=== PATIENT | female | born 1985 | race American Indian/Alaskan Native ===

== ENCOUNTER 2017-03-31 01:46 | Inpatient (IN) | payer MEDICAID ==
[2017-03-31] MEDS ORDERED: LACTATED RINGERS 1,000 ML IV ONE (02:20)
[2017-03-31] MEDS ORDERED: BRETHINE SUB-Q ONE (03:34)
[2017-03-31] MEDS ORDERED: LACTATED RINGERS 1,000 ML IV SCH (04:00)
[2017-03-31 04:18] LABS: Basophils % (Auto) 0.2 % (0.0-1.8); Eosinophils % (Auto) 0.9 % (0.0-4.3); Hematocrit 33.6 % (30.3-42.9); Hemoglobin 11.4 gm/dl (10.1-14.3); Mean Corpuscular HGB Conc 34 % (30-34); Mean Corpuscular Hemoglobin 27 pg (28-32); Mean Corpuscular Volume 80 fl (79-97); Platelet Count 187 K/mm3 (140-440); Red Blood Count 4.19 M/mm3 (3.65-5.03); Red Cell Distribution Width 17.4 % (13.2-15.2)
[2017-03-31] MEDS ORDERED: ANCEF/STERILE WATER 2 GM/20 ML 2 GM/20 ML SYRINGE IV NR (05:00)
[2017-03-31 05:03] LABS: HIV-1 Antigen p24 Non React (Non React); HIVR-1/2 Ab Non React (Non React)
[2017-03-31] MEDS ORDERED: BRETHINE IVP PRN (05:07)
[2017-03-31] MEDS ORDERED: BICITRA PO ONE ×2 (05:14→06:30)
[2017-03-31] MEDS ORDERED: ceFAZolin 1 GM in NACL 0.9% 20 ML IV SCH (05:15)
[2017-03-31] MEDS ORDERED: BICITRA ONE (05:17)
[2017-03-31] MEDS ORDERED: PITOCin/NS 20 UNIT/1000ML DRIP 20,000 MILLIUNITS/1,000 ML BAG IV ONE (05:17)
[2017-03-31] MEDS ORDERED: PEPCID IV ONE (05:17)
[2017-03-31] MEDS ORDERED: REGLAN ONE (05:17)
[2017-03-31] MEDS ORDERED: ANCEF/STERILE WATER 2 GM/20 ML 2 GM/20 ML SYRINGE IV ONE (05:17)
--- NOTE | 2017-03-31 05:32 | History and Physical Report ---
History of Present Illness Date of examination: 03/31/17 Date of admission: 03/31/17 Chief complaint: 38 weeks with contractions. History of present illness: Patient is 31 year old , LMP unknown, EDC 04/08/17 who is at 38 weeks and 6 days gestation who presented to the floor complaining of contractions since about 11 PM last night. She denies any fluid leakage or bleeding per vagina. She reports good movement. She is a non-registered patient. She receives P[facility] at [facility]. She has a history of previous C/section for placental abruption at 28 weeks in 2010. She states that her PNC has been uneventful. Her PN records are not available at this time. Since admission, tracing has been CAT 1, contraction irregular. Cervix: 4-5 cm/100%/-2, bulging membranes. 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 History: other (Fibroids) Social history: single, lives with family - Obstetrical History : 2 Para: 1 Number of Pregnancies: 1 Number of Living Children: 1 Medications and Allergies Allergies Allergy/AdvReac Type Severity Reaction Status Date / Time No Known Allergies Allergy Verified 03/31/17 01:58 Active Meds: Active Medications Citric Acid/Sodium Citrate (Bicitra) 30 ml PO ONCE ONE Stop: 03/31/17 05:15 Lactated Ringer's (Lactated Ringers) 1,000 mls @ 125 mls/hr IV DIRECT VIBHA Last Admin: 03/31/17 03:35 Dose: 125 mls/hr Lactated Ringer's (Lactated Ringers) 1,000 mls @ 125 mls/hr IV DIRECT VIBHA Cefazolin Sodium 1 gm/ Sodium (Chloride) 20 mls @ 20 mls/10 min IV ONCE VIBHA PRN Reason: Protocol Terbutaline Sulfate (Brethine) 0.25 mg IVP ONCE PRN PRN Reason: Hyperstimulation/Hypertonicity - Vital Signs Vital signs: Vital Signs Pulse BP 76 132/87 03/31/17 02:13 03/31/17 02:13 Temp Pulse Resp BP Pulse Ox 98.0 F 112 H 20 132/87 99 03/31/17 02:15 03/31/17 05:05 03/31/17 02:15 03/31/17 02:13 03/31/17 05:05 - Physical Exam Cardiovascular: Normal S1, Normal S2 Lungs: Positive: Clear to auscultation Vulva: both: normal Cervix: Positive: other (4-5 cm/100%/-2) Adnexa: both: normal Deep Tendon Reflex Grade: Normal +2 - Obstetrical FHR: category 1 Uterine Contraction Monitor Mode: External Cervical Dilatation: 4 Cervical Effacement Percentage: 100 station: -2 Uterine Contraction Pattern: Irregular Results Result Diagrams: 03/31/17 03:30 Abnormal lab results 03/31/17 Range/Units 03:30 MCH 27 L (28-32) pg RDW 17.4 H (13.2-15.2) % [place] % (Auto) 9.7 H (0.0-7.3) % All other labs normal. Assessment and Plan - Patient Problems (1) 38 weeks gestation of Current Visit: Yes Status: Acute (2) Active labor Current Visit: Yes Status: Acute Plan to address problem: Admit to Labor Floor. Routine labs ordered. and toco monitoring. IV fluids. (3) Previous section Current Visit: Yes Status: Acute Plan to address problem: Patient was counselled for a repeat C/section. Risks, benefits, and alternatives of the procedure were discussed in detail with her which included but not limited to the risks of infection, hemorrhage requiring blood transfusion, injury to the bowel, bladder and blood vessels. The patient expressed understanding, her questions were answered, she gave her informed consent. Anesthesia and OR team have been notified. (4) Referred by self Current Visit: Yes Status: Acute
[2017-03-31] MEDS ORDERED: MORPHINE ONE (05:57)
[2017-03-31] MEDS ORDERED: WATER FOR IRRIG STERILE IR ONE (06:19)
[2017-03-31] MEDS ORDERED: NACL 0.9% IR ONE (06:19)
[2017-03-31] MEDS ORDERED: ANCEF/STERILE WATER 2 GM/20 ML IV ONE (06:26)
[2017-03-31] MEDS ORDERED: METHERGINE IM ONE ×2 (06:30→06:49)
[2017-03-31] MEDS ORDERED: REGLAN IV ONE (06:30)
[2017-03-31] MEDS ORDERED: ZOFRAN ONE (06:41)
[2017-03-31] MEDS ORDERED: VERSED ONE (06:59)
[2017-03-31] MEDS ORDERED: PITOCin/NS 20 UNIT/1000ML DRIP 20 UNITS/1,000 ML BAG IV SCH ×2 (07:00→08:00)
[2017-03-31] MEDS ORDERED: TUCKS PAD TP PRN (08:00)
[2017-03-31] MEDS ORDERED: SODIUM CHLORIDE FLUSH SYRINGE 10 ML IV PRN (08:00)
[2017-03-31] MEDS ORDERED: NARCAN 0.4 MG/1 ML IV PRN ×2 (08:00→08:30)
[2017-03-31] MEDS ORDERED: ZOFRAN IV PRN ×2 (08:00→08:02)
[2017-03-31] MEDS ORDERED: DILAUDID IV PRN ×2 (08:00→08:02)
[2017-03-31] MEDS ORDERED: TYLENOL PO PRN (08:00)
[2017-03-31] MEDS ORDERED: NACL 0.9% 1000 ML 0 ML ONE (08:08)
--- NOTE | 2017-03-31 08:17 | Operative Report ---
Operative Report Operative Report: Preoperative diagnosis: 1. SIUP at 38 weeks and 6 days gestation in active labor. 2. Previous section. 3. Uterine myoma. Postop diagnosis: 1. Same as preop diagnosis. Procedure: Repeat LTCS. Surgeon: Dr. Spivey Rail Bender: none. Anesthesia: spinal Complications: none. EBL: 1 L IVF: 2200 cc Urine: 150 cc clear. Operative findings: 1. Male infant found in in OA position, delivered at 6:36 AM, Apgars 8 at 1 minutes and 9 at 5 minutes, weight 9 lbs. 5 oz. 2. Multiple subserosal myomae. Procedure details: The risks, benefits, and alternatives of the procedure were discussed in detail with the patient which included but not limited to risk of infection, hemorrhage requiring blood transfusion, injury to the bowel bladder and blood vessels. The patient expressed understanding, her questions were answered, and she gave informed consent. The patient was taken to the operating room with an IV fluid infusing Ringer's lactate and a Marsh catheter in place. In the operating room, she was placed in the sitting position and given combined spinal/epidural anesthesia. Then, she was placed in the supine position with a leftward tilt. Venodynes boots were placed. The abdomen was washed and she was prepared and draped in usual sterile fashion. After confirming adequate spinal anesthesia, A Pfannenstiel skin incision was made with the scalpel in the lower abdomen about 2 cm above the pubic symphysis at the level of the previous scar. This incision was carried down to and the underlying fascia using the Bovie. The fascia was opened bilaterally in a curvilinear fashion using the Bovie straight Kocker clamps were used to grasp the upper edge of the fascia form which the underlying rectus abdominis muscle was dissected off using the Bovie. A similar procedure was done with the lower edge of the fascia to dissect the underlying rectus abdominis muscle. The muscle was bluntly from the midline by pulling. The parietal peritoneum was grasped with 2 hemostat clamps and entered sharply using Metzenbaum scissors. A quick survey of the anatomy revealed a gravid uterus, multiple subserosal myomae throughout the fundal region, normal ovaries and fallopian tubes bilaterally. A bladder flap was created. Ramy O'retractor was placed on the incision. A low transverse incision was made in the lower uterine segment using the scalpel and extended bilaterally in a curvilinear fashion using bandage scissors. The amniotic sac was ruptured, there was copious amount of clear amniotic fluid. The was found in an MILO position, the head was delivered atraumatically, bulb suction of the mouth and nose was performed. This was followed by the delivery of the shoulders and the rest of the body atraumatically. The infant was a male delivered at 6:36 AM. The cord was clamped 2 and cut and the was handed off to the waiting clerk telegraph service. Apgars were 8 at 1 minute and 9 at 5 minutes, weight 9 lbs. 5 oz. The placenta was delivered manually and it was complete with a three-vessel cord. The uterine cavity was cleaned of clots and debris using dry lap sponges. The uterine incision was repaired in a running locked fashion using 0 Vicryl sutures. A second layer of imbrication was placed. Teeseal was sprayed across the incision. After confirming adequate hemostasis, the instruments were removed from the abdomen cavity. The fascia was closed in a running fashion using 0 Vicryl sutures. The skin was closed with topher. Sterile dressing was placed. The counts of laps, and needles, sponges, and instruments were correct 2. She tolerated the procedure well and she was taken to the recovery room in a stable condition.
[2017-03-31] MEDS ORDERED: BENADRYL IV PRN (08:30)
[2017-03-31] MEDS ORDERED: PHENERGAN PR PRN ×2 (08:30)
[2017-03-31] MEDS ORDERED: MYLICON PO PRN (09:00)
[2017-03-31] MEDS ORDERED: SODIUM CHLORIDE FLUSH SYRINGE 10 ML IV NR (09:00)
[2017-03-31] MEDS: LACTATED RINGERS 1,000 ML IV SCH (10:00)
[2017-03-31 13:44] LABS: Basophils % (Auto) 0.4 % (0.0-1.8); Hematocrit 33.7 % (30.3-42.9); Hemoglobin 11.4 gm/dl (10.1-14.3); Mean Corpuscular HGB Conc 34 % (30-34); Mean Corpuscular Hemoglobin 28 pg (28-32); Mean Corpuscular Volume 82 fl (79-97); Platelet Count 169 K/mm3 (140-440); Red Blood Count 4.12 M/mm3 (3.65-5.03); Red Cell Distribution Width 17.6 % (13.2-15.2); White Blood Count 11.7 K/mm3 (4.5-11.0)
[2017-03-31] MEDS: TORADOL IV PRN ×2 (17:44→23:12)
[2017-03-31 20:10] LABS: Hemoglobin 9.9 gm/dl (10.1-14.3)
[2017-03-31] MEDS ORDERED: METHERGINE PO ONE (21:16)
[2017-03-31] MEDS ORDERED: SENOKOT PO PRN (22:00)
[2017-04-01] MEDS: LACTATED RINGERS 1,000 ML IV SCH (01:23)
[2017-04-01] MEDS: MOTRIN PO PRN ×2 (05:05→18:08)
[2017-04-01] MEDS ORDERED: PEPCID IV ONE (06:30)
--- NOTE | 2017-04-01 09:51 | Anesthesia Consultation ---
Anesthesia Consult and Med Hx Date of service: 04/01/17 - Airway Anesthetic Teeth Evaluation: Good ROM Head & Neck: Adequate Mental/Hyoid Distance: Adequate Mallampati Class: Class II Intubation Access Assessment: Probably Good - Pre-Operative Health Status ASA Pre-Surgery Classification: ASA2 Proposed Anesthetic Plan: Epidural, Spinal - Pulmonary Hx Asthma: No COPD: No Hx Pneumonia: No - Cardiovascular System Hx Hypertension: No - Central Nervous System Hx Seizures: No Hx Psychiatric Problems: No - Endocrine Hx Renal Disease: No Hx Hypothyroidism: No Hx Hyperthyroidism: No - Hematic Hx Anemia: No Hx Sickle Cell Disease: No - Other Systems Hx Alcohol Use: No
--- NOTE | 2017-04-01 09:51 | Anesthesia Day of Surgery ---
Anesthesia Day of Surgery - Day of Surgery Patient Examined: Yes Patient H&P Reviewed: Yes Patient is NPO: Yes
--- NOTE | 2017-04-01 09:52 | Progress Note ---
Subjective Date of service: 04/01/17 Interval history: 1st POD after repeat Patient is in the bed, comfortable. Pain is well controlled with pain meds. Ambulated well. No residual neurological deficit. No anesthesia complications. Objective - Constitutional Vitals: Vital Signs - 12hr 04/01/17 04/01/17 04/01/17 00:57 04:35 07:35 Temperature 98.5 F 98.7 F 97.8 F Pulse Rate 78 70 66 Respiratory 16 18 Rate Blood Pressure 102/55 112/55 [Left] O2 Sat by Pulse 97 Oximetry - Labs CBC & Chem 7: 03/31/17 19:44 Labs: Abnormal lab results 03/31/17 03/31/17 Range/Units 13:20 19:44 WBC 11.7 H (4.5-11.0) K/mm3 Hgb 9.9 L (10.1-14.3) gm/dl Hct 29.0 L (30.3-42.9) % RDW 17.6 H (13.2-15.2) % Lymph % (Auto) 8.7 L (13.4-35.0) % [place] % (Auto) 9.7 H (0.0-7.3) % Lymph # 1.0 L (1.2-5.4) K/mm3 [place] # 1.1 H (0.0-0.8) K/mm3 Seg Neutrophils % 81.2 H (40.0-70.0) % Seg Neutrophils # 9.5 H (1.8-7.7) K/mm3
--- NOTE | 2017-04-01 10:03 | Progress Note ---
Assessment and Plan A: POD #1 Asymptomatic Anemia P: Follow Routine PostOp Orders Continue PO [id number] Encourage increased ambulation Subjective - Subjective Date of service: 04/01/17 Patient reports: appetite normal, voiding normally, pain well controlled, ambulating normally [place]: doing well Objective - Vital Signs Latest vital signs: Vital Signs Temp Pulse Resp BP BP Pulse Ox 04/01/17 07:35 97.8 F 66 97 04/01/17 04:35 98.7 F 70 18 112/55 04/01/17 00:57 98.5 F 78 16 102/55 03/31/17 21:12 98 F 73 16 119/72 03/31/17 17:44 18 03/31/17 17:14 98.4 F 69 18 129/72 98 03/31/17 15:29 86 22 99 03/31/17 11:52 97.3 F L 73 20 129/76 96 03/31/17 11:51 97.3 F L 71 20 129/75 Intake and Output 03/31/17 04/01/17 04/01/17 22:59 06:59 14:59 Intake Total 1000 720 Output Total 200 1000 Balance 800 -280 Intake: IV 1000 Lactated Ringers 1,000 ml 1000 @ 125 mls/hr IV DIRECT VIBHA Rx#:[id number] Intake, Free Water 720 Output: Urine 200 1000 Indwelling Catheter 200 1000 Other: Total, Output Amount 200 800 # Voids Void 1 - Exam Breasts: Present: normal Cardiovascular: Present: Regular rate Lungs: Present: Clear to auscultation, Normal air movement Abdomen: Present: normal appearance, soft, normal bowel sounds Uterus: Present: normal, firm, fundal height below umbilicus Incision: Present: normal, dry, dressed - Labs Labs: Abnormal lab results 03/31/17 03/31/17 Range/Units 13:20 19:44 WBC 11.7 H (4.5-11.0) K/mm3 Hgb 9.9 L (10.1-14.3) gm/dl Hct 29.0 L (30.3-42.9) % RDW 17.6 H (13.2-15.2) % Lymph % (Auto) 8.7 L (13.4-35.0) % [place] % (Auto) 9.7 H (0.0-7.3) % Lymph # 1.0 L (1.2-5.4) K/mm3 [place] # 1.1 H (0.0-0.8) K/mm3 Seg Neutrophils % 81.2 H (40.0-70.0) % Seg Neutrophils # 9.5 H (1.8-7.7) K/mm3
[2017-04-01] MEDS: FEOSOL PO SCH (10:37)
[2017-04-01] MEDS: PERCOCET 5/325 PO PRN (22:24)
[2017-04-02] MEDS: PERCOCET 5/325 PO PRN ×2 (05:26→15:05)
[2017-04-02] MEDS: MOTRIN PO PRN ×2 (05:27→15:05)
[2017-04-02] MEDS: FEOSOL PO SCH (10:41)
--- NOTE | 2017-04-02 13:22 | Progress Note ---
Assessment and Plan A: POD 2 - stable Asymtomatic Anemia P: Discharge patient to home Follow up in 1 week for topher removal and in 6 wks for PP exam Subjective - Subjective Date of service: 04/02/17 Principal diagnosis: Repeat Low Transverse Patient reports: appetite normal, voiding normally, pain well controlled, flatus , ambulating normally [place]: doing well, other (breast and bottle feeding) Objective - Vital Signs Latest vital signs: Vital Signs Temp Pulse Resp BP Pulse Ox 04/02/17 08:10 97.9 F 74 19 123/72 04/01/17 21:28 98.3 F 82 20 123/72 96 04/01/17 18:29 98.1 F 68 18 112/68 100 Intake and Output 04/01/17 04/02/17 04/02/17 23:59 07:59 15:59 Intake Total 480 120 Balance 480 120 Intake: Oral 480 120 Other: Total, Intake Amount 480 120 # Voids Void 2 # Bowel Movements 0 - Exam Breasts: Present: deferred Cardiovascular: Present: Regular rate, Normal S1, Normal S2, No murmurs Lungs: Present: Clear to auscultation, Normal air movement Abdomen: Present: normal appearance, soft Vulva: both: normal Uterus: Present: normal, firm, fundal height below umbilicus Extremities: Present: edema (3+ BLE; nonpitting) Deep Tendon Reflex Grade: Normal +2 Incision: Present: normal, dry, intact (topher in place)
--- NOTE | 2017-04-02 13:27 | Discharge Summary ---
Providers - Providers Date of Admission: 03/31/17 05:44 Date of discharge: 04/02/17 Attending physician: ELSI STRICKLAND MD Primary care physician: ELSI STRICKLAND MD Hospitalization Reason for admission: active labor, IUP at term Delivery: Procedure: repeat low transverse Episiotomy: none Laceration: none Incision: normal, dry, intact, other (topher in place) complications: other (Anemia) Discharge diagnosis: IUP at term delivered, other (Repeat Low Transverse C- Section) [place] baby: male Hospital course: Uncomplicated Condition at discharge: Stable Disposition: DC-01 TO HOME OR SELFCARE Plan - Discharge Medications Prescriptions: Ibuprofen 800 mg PO 4XD PRN 14 Days #60 tablet PRN Reason: Pain, Moderate (4-6) - Provider Discharge Summary Activity: routine, no sex for 6 weeks, no heavy lifting 4 weeks, no strenuous exercise Diet: routine Instructions: routine Additional instructions: [] Smoking cessation referral if applicable(refer to patient education folder for contact #) [] Refer to [facility]'s [facility] Booklet Call your doctor immediately for: * Fever > 100.5 * Heavy vaginal bleeding ( >1 pad per hour) * Severe persistent headache * Shortness of breath * Reddened, hot, painful area to leg or breast * Drainage or odor from incision. * Keep incision clean and dry at all times and follow doctor's instructions regarding bathing/showering - Follow up plan Follow up: ELSI STRICKLAND MD [Primary Care Provider] - 7 Days (Topher Removal))
[2017-04-02 18:23] VITALS: BP 128/78
== END 2017-04-02 18:45 | disposition home or self-care (01) | DRG 766 ==
LOC: TRG 01:46 → APU 05:44 → OB 09:51
PROVIDERS: ADMIT Obstetrics & Gynecology; ATTEND Obstetrics & Gynecology
PROC: 10D00Z1 Extraction of Products of Conception, Low, Open Approach (ICD-10-PCS; principal; 2017-03-31)
DX: O34.211 Maternal care for low transverse scar from previous cesarean delivery (principal); Z3A.38 38 weeks gestation of pregnancy; Z37.0 Single live birth; O34.13 Maternal care for benign tumor of corpus uteri, third trimester; D25.9 Leiomyoma of uterus, unspecified; O90.81 Anemia of the puerperium; D64.9 Anemia, unspecified
CPT/HCPCS: 36415; 85014; 85018; 85025; 86592; 86706; 86762; 86850; 86900; 86901; 87806; 88307; 99211; C9250; G0463; J0690; J1170; J1885; J2210; J2250; J2270; J2405; J2590; J2765; J3105; J7030; J7120